=== PATIENT | female | born 1985 | race Asian ===

== ENCOUNTER 2017-01-16 00:08 | Emergency (ER) | payer OTHER ==
[~2017-01-16] VITALS: Ht 152.4 cm; Wt 68.0 kg
[2017-01-16 00:50] VITALS: BP 113/61
[2017-01-16] MEDS ORDERED: ACETAMINOPHEN ES 500 MG TABLET ONE (01:46)
[2017-01-16] MEDS ORDERED: ACETAMINOPHEN 325 MG TABLET PO ONE (02:00)
== END 2017-01-16 02:49 | disposition home or self-care (01) ==
LOC: ER 00:13
DX: S93.401A Sprain of unspecified ligament of right ankle, initial encounter (principal); X58.XXXA Exposure to other specified factors, initial encounter; Y93.89 Activity, other specified; Y92.89 Other specified places as the place of occurrence of the external cause; Y99.8 Other external cause status
CPT/HCPCS: 73610; 73630; 99284; A4606; Z7610